=== PATIENT | female | born 1965 | race African-American/Black ===

== ENCOUNTER → 2017-01-03 | Outpatient (CLI) | payer OTHER | LOC: HYPER 10-03 07:06 | DX: T81.31XD Disruption of external operation (surgical) wound, not elsewhere classified, subsequent encounter (principal); R60.0 Localized edema; E11.69 Type 2 diabetes mellitus with other specified complication; I10 Essential (primary) hypertension; J45.909 Unspecified asthma, uncomplicated; F17.210 Nicotine dependence, cigarettes, uncomplicated; Y83.8 Other surgical procedures as the cause of abnormal reaction of the patient, or of later complication, without mention of misadventure at the time of the procedure ==

== ENCOUNTER → 2017-03-06 | Outpatient (CLI) | payer OTHER | LOC: HYPER 14:19 | DX: T81.89XD Other complications of procedures, not elsewhere classified, subsequent encounter (principal); E66.09 Other obesity due to excess calories; R60.0 Localized edema; G60.9 Hereditary and idiopathic neuropathy, unspecified; J45.909 Unspecified asthma, uncomplicated; I10 Essential (primary) hypertension; F17.200 Nicotine dependence, unspecified, uncomplicated; Z79.84 Long term (current) use of oral hypoglycemic drugs; Y83.8 Other surgical procedures as the cause of abnormal reaction of the patient, or of later complication, without mention of misadventure at the time of the procedure ==

== ENCOUNTER → 2017-05-26 | Outpatient (CLI) | payer OTHER | LOC: HYPER 07:56 | DX: T81.89XD Other complications of procedures, not elsewhere classified, subsequent encounter (principal); E66.09 Other obesity due to excess calories; G60.9 Hereditary and idiopathic neuropathy, unspecified; J45.909 Unspecified asthma, uncomplicated; I10 Essential (primary) hypertension; F17.200 Nicotine dependence, unspecified, uncomplicated; Z96.659 Presence of unspecified artificial knee joint; Z68.42 Body mass index [BMI] 45.0-49.9, adult; Y83.8 Other surgical procedures as the cause of abnormal reaction of the patient, or of later complication, without mention of misadventure at the time of the procedure ==